=== PATIENT | female | born 1985 | race African-American/Black ===

== ENCOUNTER 2016-10-26 18:25 | Emergency (ER) | payer BC | END 2016-10-26 20:05 | disposition left against medical advice (07) | LOC: UCEAST 18:25 | DX: R50.9 Fever, unspecified (principal); Z53.21 Procedure and treatment not carried out due to patient leaving prior to being seen by health care provider ==

== ENCOUNTER 2017-06-21 17:49 | Emergency (ER) | payer BC ==
[2017-06-21 17:56] VITALS: BP 164/109
[2017-06-21] MEDS ORDERED: Benzoin Compound STICK TOPICAL ONE (18:31)
[2017-06-21] MEDS ORDERED: Tetan/Diph/Pertus SYR(Tdap)* 0.5 ML SYR(BOOSTRIX) use SYR IM ONE (18:32)
[2017-06-21] MEDS ORDERED: DOXYcycline CAP(*) 100 MG PO ONE (18:32)
--- NOTE | 2017-06-21 19:09 | UC ---
Skin Complaint HPI - HPI Summary HPI Summary: steped on a latch from a dog kennel about 5 pm----has a laceration to right heel - History of Current Complaint Chief Complaint: UCLaceration Time Seen by Provider: 06/21/17 18:16 Stated Complaint: HEEL COMPLAINT Hx Obtained From: Patient Hx Last Menstrual Period: years ago ?: No Onset/Duration: Sudden Onset, Lasting Hours - 2, Still Present Timing: Constant Onset Severity: Moderate Current Severity: Moderate Pain Intensity: 6 Pain Scale Used: 0-10 Numeric Location: Discrete - right heel Aggravating Factor(s): Touch Alleviating Factor(s): Nothing Related History: Trauma - Allergy/Home Medications Allergies/Adverse Reactions: Allergies Allergy/AdvReac Type Severity Reaction Status Date / Time Iodinated Contrast Media Allergy Rash Verified 06/21/17 17:57 [IV CONTRAST DYE] CATS Allergy SNEEZING, Uncoded 06/21/17 17:57 ITCHY EYES KIWI Allergy THROAT Uncoded 06/21/17 17:57 ITCHY Home Medications: Home Medications Irbesartan (NF) [Avapro (NF)] 1 tab PO DAILY 06/21/17 [History Confirmed ] Review of Systems Constitutional: Negative Skin: Other - 5mm x25 mm skin flap back of right heel Eyes: Negative ENT: Negative Respiratory: Cough Cardiovascular: Negative Gastrointestinal: Negative Genitourinary: Negative Motor: Negative Neurovascular: Negative Musculoskeletal: Negative Neurological: Negative Psychological: Negative Is Patient Immunocompromised?: No All Other Systems Reviewed And Are Negative: Yes PMH/Surg Hx/FS Hx/Imm Hx Previously Healthy: No Cardiovascular History: Hypertension GI/ History: Gastroesophageal Reflux - Surgical History Surgical History: Yes Surgery Procedure, Year, and Place: 2001 AND 2007 x2, [facility] - Family History Known Family History: Positive: None - Social History Occupation: Employed Full-time Lives: With Family Alcohol Use: Occasionally Substance Use Type: None Smoking Status (MU): Current Some Day Smoker - Immunization History Most Recent Influenza Vaccination: "a long time ago" Most Recent Tetanus Shot: unknown Most Recent Pneumonia Vaccination: never Physical Exam Triage Information Reviewed: Yes Appearance: Well-Appearing, No Pain Distress, Obese Vital Signs: Initial Vital Signs Temp 98.6 F 06/21/17 17:53 Pulse 91 06/21/17 17:53 Resp 18 06/21/17 17:53 BP 164/109 11/12/17 17:53 Pulse Ox 97 06/21/17 17:53 Vital Signs Reviewed: Yes Eye Exam: Normal Eyes: Positive: Conjunctiva Clear ENT Exam: Normal ENT: Positive: Normal ENT inspection, Hearing grossly normal, Pharynx normal. Negative: Nasal congestion, Nasal drainage, Trismus, Muffled voice, Hoarse voice Dental Exam: Normal Neck exam: Normal Neck: Positive: Supple, Nontender Respiratory Exam: Normal Respiratory: Positive: Chest non-tender, No respiratory distress, No accessory muscle use Cardiovascular Exam: Normal Cardiovascular: Positive: RRR, Pulses Normal, Brisk Capillary Refill Musculoskeletal Exam: Normal Musculoskeletal: Positive: Strength Intact, ROM Intact, No Edema Neurological Exam: Normal Neurological: Positive: Alert, Muscle Tone Normal Psychological Exam: Normal Skin Exam: Other - skin avulsion as described Skin: Positive: Other Re-Evaluation - Re-Evaluation First Eval Change: Improved - warm soap and water soak, and wound cleanse skin approximated vaseline gauze and dsd applied with joslyn wrap---pt tolerated well Course/Dx - Course Course Of Treatment: vaseline gauze with bulky dressing bid after warm soaks, up date tetanus, doxycycline follow bp with pcp - Diagnoses Provider Diagnoses: skin avulsion right foot, hypertension in poor control, Discharge - Discharge Plan Condition: Stable Disposition: HOME Patient Education Materials: Hypertension (ED), Skin Avulsion (ED) Forms: *Work Release Referrals: Austin Chapman MD [Primary Care Provider] - 1 Week
== END 2017-06-21 19:45 | disposition home or self-care (01) ==
LOC: UCEAST 17:49
DX: S91.311A Laceration without foreign body, right foot, initial encounter (principal); W22.8XXA Striking against or struck by other objects, initial encounter; Y93.9 Activity, unspecified; Y92.9 Unspecified place or not applicable; Z23 Encounter for immunization; I10 Essential (primary) hypertension; K21.9 Gastro-esophageal reflux disease without esophagitis; E66.9 Obesity, unspecified; Z72.0 Tobacco use
CPT/HCPCS: 90715; 99212; A9270-GY; G0463

== ENCOUNTER 2017-09-15 08:41 | Emergency (ER) | payer BC ==
[2017-09-15 09:03] VITALS: BP 174/95
[2017-09-15] MEDS ORDERED: Albuterol 2.5 MG/3 ML NEB.SOL* (0.083%) INH ONE (09:35)
[2017-09-15] MEDS ORDERED: Ondansetron ODT TAB* 4 MG PO ONE (09:35)
--- NOTE | 2017-09-15 09:43 | UC ---
FLU HPI - HPI Summary HPI Summary: SEVERAL DAYS OF FEVER, CHILLS, MALAISE. HAS NAUSEA, VOMITING AND COUGH. FEELS CONGESTED IN THE UPPER CHEST. UNABLE TO KEEP DOWN PO TODAY AT ALL. NO FLU SHOT THIS SEASON. - History of Current Complaint Chief Complaint: UCGeneralIllness Stated Complaint: FEVER, VOMITING, CHILLS Time Seen by Provider: 09/15/17 08:49 Hx Obtained From: Patient Hx Last Menstrual Period: no period - states Mirena Onset/Duration: Gradual Onset, Lasting Days, Still Present Severity Currently: Moderate Severity Initially: Moderate Pain Intensity: 3 Pain Scale Used: 0-10 Numeric Associated Signs & Symptoms: Positive: Fever, Myalgia, Cough, Nasal Congestion, Vomiting - Allergy/Home Medications Allergies/Adverse Reactions: Allergies Allergy/AdvReac Type Severity Reaction Status Date / Time Iodinated Contrast- Oral and Allergy Rash Verified 09/15/17 08:51 IV Dye CATS Allergy SNEEZING, Uncoded 06/21/17 17:57 ITCHY EYES KIWI Allergy THROAT Uncoded 06/21/17 17:57 ITCHY PMH/Surg Hx/FS Hx/Imm Hx Cardiovascular History: Hypertension Respiratory History: Asthma - Surgical History Surgical History: Yes Surgery Procedure, Year, and Place: 2001 AND 2007 x2, [facility]. 2014 - gastric sleeve. 2017 - cornea transplant [facility] - Family History Known Family History: Positive: Hypertension - Social History Alcohol Use: None Substance Use Type: None Smoking Status (MU): Former Smoker - Immunization History Most Recent Influenza Vaccination: "a long time ago" Most Recent Tetanus Shot: unknown Most Recent Pneumonia Vaccination: never Review of Systems Constitutional: Fever, Chills, Fatigue ENT: Sore Throat, Nasal Discharge Respiratory: Cough Gastrointestinal: Abdominal Pain, Vomiting, Nausea Musculoskeletal: Myalgia All Other Systems Reviewed And Are Negative: Yes Physical Exam Triage Information Reviewed: Yes Appearance: No Pain Distress, Well-Nourished, Ill-Appearing - MILD Vital Signs: Initial Vital Signs Temp 101.3 F 09/15/17 08:53 Pulse 101 09/15/17 08:53 Resp 22 09/15/17 08:53 BP 174/95 09/15/17 08:53 Pulse Ox 98 09/15/17 08:53 Vital Signs Reviewed: Yes Eyes: Positive: Conjunctiva Clear ENT: Positive: Hearing grossly normal, Pharynx normal, TMs normal Neck: Positive: Supple, Nontender, No Lymphadenopathy Respiratory Exam: Normal Cardiovascular: Positive: Tachycardia Abdomen Description: Positive: Soft Musculoskeletal: Positive: No Edema Neurological: Positive: Alert Psychological: Positive: Age Appropriate Behavior Skin: Negative: rashes Diagnostics - Laboratory Diagnostic Studies Completed/Ordered: FLU SWAB NEGATIVE - Radiology CHEST XRAY Xray Interpretation: No Acute Changes Radiology Interpretation Completed By: Radiologist Flu Course/Dx - Differential Dx/Diagnosis Provider Diagnoses: ACUTE VIRAL SYNDROME Discharge - Discharge Plan Condition: Stable Disposition: HOME Prescriptions: Albuterol HFA INHALER* [Ventolin HFA Inhaler*] 2 puff INH Q4H PRN #1 mdi PRN Reason: Shortness Of Breath Ondansetron ODT TAB* [Zofran Odt TAB*] 4 mg PO Q6H PRN #20 tab.odt PRN Reason: Nausea/Vomiting predniSONE TAB* [Deltasone TAB*] 40 mg PO DAILY #10 tab Patient Education Materials: Viral Syndrome (ED) Forms: *Work Release Referrals: Austin Chapman MD [Primary Care Provider] - 2 Weeks Additional Instructions: FLU SWAB NEGATIVE. CHEST XRAY UNREMARKABLE. YOU FELT A BIT BETTER AFTER THE NEB TREATMENT. WILL TREAT YOUR SYMPTOMS WITH ALBUTEROL INHALER, PREDNISONE AND NAUSEA MEDICINE. VIRAL SYNDROME: The physician has diagnosed a viral infection. Viruses not only cause "colds," but can cause many different symptoms including generalized aching, fever, headache, cough, diarrhea, nausea, vomiting, and fatigue. The treatment, for the most part, is simply relief of symptoms. This means that antibiotics are usually not given. Rest, fluids, pain medications and, occasionally, medication for the specific symptoms that are most bothersome will be prescribed. Go to the ED if you develop any new or unusual symptoms such as severe headache, stiff neck, high fever, chest pain, productive cough, or shortness of breath. You should be rechecked if you don't see marked improvement within 10 to 14 days.
--- NOTE | 2017-09-15 10:09 | RAD ---
INDICATION: Cough and fever COMPARISON: Most recent comparison chest x-rays dated February 27, 2016 TECHNIQUE: PA and lateral views of the chest were obtained. FINDINGS: The heart and mediastinum are normal in size and contour. The lungs are grossly clear. There is no evidence of large pleural effusion. Visualized bones are normal for the patient's age. There is no radiographic evidence of free air beneath the diaphragm IMPRESSION: No radiographic evidence of acute cardiopulmonary disease.
== END 2017-09-15 10:55 | disposition home or self-care (01) ==
LOC: UCEAST 08:41
DX: B34.9 Viral infection, unspecified (principal); R00.0 Tachycardia, unspecified; I10 Essential (primary) hypertension; J45.909 Unspecified asthma, uncomplicated; Z98.84 Bariatric surgery status; Z94.7 Corneal transplant status; Z91.041 Radiographic dye allergy status; Z87.891 Personal history of nicotine dependence
CPT/HCPCS: 71046; 87502; 99212; A9270-GY; G0463

== ENCOUNTER 2021-09-23 18:34 | Observation (INO) ==
[2021-09-23 20:26] LABS: Urine Appearance Cloudy; Urine Bilirubin Negative (Negative); Urine Blood Negative (Negative); Urine Color Yellow; Urine Glucose Negative (Negative); Urine Ketones Trace (Negative); Urine Nitrite Negative (Negative); Urine Protein 1+(30 mg/dL) (Negative); Urine Specific Gravity 1.028 (1.002-1.030); Urine Urobilinogen Negative (Negative)
[2021-09-23 21:09] LABS: Urine Bacteria Absent (Absent); Urine Red Blood Cell Absent (Absent); Urine Squamous Epithelial Cell Present (Absent); Urine White Blood Cell Absent (Absent)
[2021-09-23 22:32] LABS: ABS Eosinophils 0.2 10^3/ul (0-0.6); ABS Monocytes 0.4 10^3/ul (0-0.8); ABS Neutrophils 3.6 10^3/ul (1.5-7.7); Eosinophil % 3.1 %; Hematocrit 38 % (35-47); Hemoglobin 12.7 g/dL (12.0-16.0); Lymphocyte % 32.4 %; Mean Corpuscular HGB Conc 34 g/dL (31-36); Mean Corpuscular Hemoglobin 30 pg (27-31); Mean Corpuscular Volume 88 fL (80-97); Mean Platelet Volume 7.3 fL (7.4-10.4); Nucleated Red Blood Cells % 0.2; Platelet Count 219 10^3/uL (150-450); Red Blood Count 4.25 10^6 /uL (3.70-4.87); Red Cell Distribution Width 13 % (10-15); White Blood Count 6.1 10^3/uL (3.5-10.8)
[2021-09-23 22:49] LABS: ALT 16 U/L (7-52); AST 11 U/L (13-39); Albumin 4.1 g/dL (3.2-5.2); Albumin/Globulin Ratio 1.6 (1-3); Alkaline Phosphatase 95 U/L (35-149); Anion Gap 7 mmol/L (2-11); Blood Urea Nitrogen 16 mg/dL (6-24); C Reactive Protein 2.69 mg/L (<8.01); CO2 Carbon Dioxide 26 mmol/L (22-32); Calcium 9.1 mg/dL (8.6-10.3); Chloride 105 mmol/L (101-111); Globulin 2.6 g/dL (2-4); Glucose 87 mg/dL (70-100); Lipase 63 U/L (11.0-82.0); Potassium 3.8 mmol/L (3.5-5.0); Sodium 138 mmol/L (135-145); Total Protein 6.7 g/dL (6.4-8.9); eGFR CKD-EPI 79.1 (>60)
[2021-09-23 22:55] LABS: HCG Pregnancy < 0.60 mIU/mL
[2021-09-24] MEDS ORDERED: Ondansetron 4 mg VIAL 2 MG/ML 2 ml VIAL IV PRN (00:34)
[2021-09-24] MEDS: Lactated Ringers 1000 ml BAG 1,000 ML IV SCH ×4 (01:26→13:25)
[2021-09-24] MEDS: Acetaminophen IV 1 GM/100ML 100 ML IV PRN ×3 (04:24→17:57)
[2021-09-24 05:57] LABS: ABS Basophils 0.1 10^3/ul (0-0.2); ABS Eosinophils 0.2 10^3/ul (0-0.6); ABS Lymphocytes 1.8 10^3/ul (1.0-4.8); ABS Monocytes 0.5 10^3/ul (0-0.8); ABS Neutrophils 3.4 10^3/ul (1.5-7.7); Eosinophil % 3.9 %; Hematocrit 37 % (35-47); Hemoglobin 12.5 g/dL (12.0-16.0); Lymphocyte % 29.7 %; Mean Corpuscular HGB Conc 34 g/dL (31-36); Mean Corpuscular Hemoglobin 30 pg (27-31); Mean Corpuscular Volume 88 fL (80-97); Mean Platelet Volume 7.1 fL (7.4-10.4); Nucleated Red Blood Cells % 0.1; Platelet Count 207 10^3/uL (150-450); Red Blood Count 4.15 10^6 /uL (3.70-4.87); Red Cell Distribution Width 13 % (10-15); White Blood Count 5.9 10^3/uL (3.5-10.8)
[2021-09-24 06:15] LABS: Albumin 3.9 g/dL (3.2-5.2); Albumin/Globulin Ratio 1.7 (1-3); C Reactive Protein 2.49 mg/L (<8.01); Calcium 9.1 mg/dL (8.6-10.3); Globulin 2.3 g/dL (2-4); Potassium 3.9 mmol/L (3.5-5.0); Total Bilirubin 0.8 mg/dL (0.2-1.0); Total Protein 6.2 g/dL (6.4-8.9); eGFR CKD-EPI 74.4 (>60)
[2021-09-24 07:47] LABS: Erythrocyte Sed Rate 5 mm/Hr (0-19)
[2021-09-25] MEDS: Lactated Ringers 1000 ml BAG 1,000 ML IV SCH ×2 (03:25→14:06)
[2021-09-25] MEDS: Acetaminophen IV 1 GM/100ML 100 ML IV PRN (07:37)
[2021-09-25] MEDS ORDERED: ceFAZolin 1 GM ADVAN 1 GM ADDV.VIAL IVPB ONE (17:24)
[2021-09-25] MEDS ORDERED: Bupivacaine 0.25% EPI 200,000 30 ML SDV ONE (17:59)
[2021-09-25] MEDS ORDERED: Midazolam 2 mg/2 ml VIAL 1 mg/ml 2 ml VIAL (2 mg) ONE (18:11)
[2021-09-25] MEDS ORDERED: fentaNYL 100 mcg/2 ml 50 MCG/ML VIAL ONE (18:11)
[2021-09-25] MEDS ORDERED: Succinylcholine 200 mg VIAL 20 mg/ml 10 ml VIAL (200 mg) ONE (18:11)
[2021-09-25] MEDS ORDERED: Rocuronium 50 mg VIAL 10 mg/ml 5 ml VIAL (50 mg) ONE (18:19)
[2021-09-25] MEDS ORDERED: Sodium Citrate/Citric Acid LIQ 15 ML UDC ONE (18:20)
[2021-09-25] MEDS ORDERED: Metoclopramide 5 MG/ML VIAL (10 mg) IV PRN (18:21)
[2021-09-25] MEDS ORDERED: HYDROmorphone 1 MG/1 ML SYRINGE IV PRN (18:21)
[2021-09-25] MEDS ORDERED: Sodium Citrate/Citric Acid LIQ 15 ML UDC PO ONE (18:21)
[2021-09-25] MEDS ORDERED: Ondansetron 4 mg VIAL 2 MG/ML 2 ml VIAL IV PRN (18:21)
[2021-09-25] MEDS ORDERED: Buffered Lidocaine 1% SYRIN 1 ml INTRADERM ONE (18:21)
[2021-09-25] MEDS ORDERED: fentaNYL 100 mcg/2 ml 50 MCG/ML VIAL IV PRN (18:21)
[2021-09-25] MEDS ORDERED: Naloxone 0.4 mg VIAL 0.4 mg/ml 1 ml VIAL IV PRN (18:21)
[2021-09-25] MEDS ORDERED: Dexamethasone IV 4 MG/ML VIAL 1 ml VIAL ONE (18:52)
[2021-09-25] MEDS ORDERED: Lactated Ringers 1000 ml BAG 1,000 ML IV SCH (19:00)
[2021-09-25] MEDS ORDERED: Ondansetron 4 mg VIAL 2 MG/ML 2 ml VIAL ONE (20:26)
[2021-09-25] MEDS ORDERED: Labetalol IV 5 MG/ML 20 ml VIAL ONE (20:34)
[2021-09-25] MEDS ORDERED: Labetalol IV 5 MG/ML 20 ml VIAL IV PUSH ONE ×2 (22:00→22:15)
[2021-09-26] MEDS: oxyCODONE/Acetamin 5/325 mg TAB PO PRN ×2 (08:40→12:27)
[2021-09-26 11:22] VITALS: BP 140/79
== END 2021-09-26 14:15 | disposition home or self-care (01) ==
LOC: EDHOLD 18:34 → ED 18:34 → SUATTDRO 09-24 00:28 → EDHOLD 09-24 03:14 → SSU 09-24 03:55
PROVIDERS: ADMIT Internal Medicine; ATTEND Surgery

== ENCOUNTER 2023-07-17 12:18 | Observation (INO) ==
[2023-07-17 13:08] LABS: ABS Basophils 0.1 10^3/uL (0.0-0.1); ABS Eosinophils 0.1 10^3/uL (0.0-0.5); ABS Lymphocytes 1.7 10^3/uL (1.0-4.8); ABS Monocytes 0.5 10^3/uL (0.0-0.9); ABS Neutrophils 4.2 10^3/uL (1.5-7.6); ABS Nucleated RBC 0.02 10^3/ul; Eosinophil % 1.7 %; Hematocrit 40.1 % (35-45); Hemoglobin 13.8 g/dL (11.5-14.3); Lymphocyte % 26.3 %; Mean Corpuscular Hemoglobin 30.4 pg (27-33); Mean Corpuscular Hgb Conc 34.5 g/dL (31-36); Mean Platelet Volume 7.6 fL (7.5-11.2); Nucleated Red Blood Cells % 0.3 %/100WBC (0.0-0.8); Platelet Count 238 10^3/uL (150-450); Red Blood Count 4.55 10^6/uL (3.63-4.92); Red Cell Distribution Width 12.9 % (12-17); White Blood Count 6.6 10^3/uL (3.8-11.8)
[2023-07-17 13:15] LABS: Activated Partial Thrombo Time 31.2 seconds (26.0-38.0); INR 0.98 (0.83-1.13)
[2023-07-17 13:28] LABS: ALT 21 U/L (7-52); AST 15 U/L (13-39); Albumin 4.1 g/dL (3.2-5.2); Albumin/Globulin Ratio 1.6 (1-3); Alkaline Phosphatase 100 U/L (35-149); Anion Gap 6 mmol/L (2-16); Blood Urea Nitrogen 14 mg/dL (6-24); CO2 Carbon Dioxide 29 mmol/L (22-32); Calcium 9.2 mg/dL (8.6-10.3); Chloride 101 mmol/L (101-111); Cholesterol 203 mg/dL; Creatinine, Serum 0.98 mg/dL (0.51-0.95); Globulin 2.6 g/dL (2-4); Glucose 90 mg/dL (70-100); HDL Cholesterol 50.3 mg/dL; Indirect Bilirubin 0.5 mg/dL (0.3-1.0); LDL Cholesterol 130 mg/dL; Potassium 3.9 mmol/L (3.5-5.0); Sodium 136 mmol/L (135-145); Total Bilirubin 0.5 mg/dL (0.2-1.0); Total Protein 6.7 g/dL (6.4-8.9); Triglycerides 115 mg/dL; eGFR CKD-EPI 75.3 (>60)
[2023-07-17 13:30] LABS: HCG Pregnancy < 0.60 mIU/mL
[2023-07-17] MEDS ORDERED: Iohexol 350 (CONTRAST) 500 ML MDV IV ONE (14:03)
[2023-07-17 16:44] LABS: Urine Appearance Clear; Urine Bilirubin Negative (Negative); Urine Blood Negative (Negative); Urine Color Yellow; Urine Glucose Negative (Negative); Urine Ketones Negative (Negative); Urine Nitrite Negative (Negative); Urine Protein Negative (Negative); Urine Specific Gravity 1.019 (1.002-1.030); Urine Urobilinogen Negative (Negative)
[2023-07-17] MEDS ORDERED: hydrALAZINE 20 mg/ml 1 ML Vial IV IV SLOW PU PRN (17:04)
[2023-07-17 18:24] LABS: Magnesium 1.7 mg/dL (1.9-2.7)
[2023-07-17 18:53] LABS: Calcium 9.1 mg/dL (8.6-10.3); Creatinine, Serum 1.11 mg/dL (0.51-0.95); Potassium 3.2 mmol/L (3.5-5.0); eGFR CKD-EPI 64.8 (>60)
[2023-07-17] MEDS: DULoxetine DR 60 mg CAP PO SCH (21:59)
[2023-07-18] MEDS ORDERED: Potassium Chlor 20 meq TAB.ER PO ONE (01:06)
[2023-07-18] MEDS ORDERED: Magnesium Sulfate IV 1GM/100ML 1 GM/100 ML BAG IV ONE ×2 (01:07→09:32)
[2023-07-18] MEDS ORDERED: KCL 20 MEQ/100 ML IVPREMIX 20 MEQ/100 ML BAG IV SCH (02:00)
[2023-07-18] MEDS: DULoxetine DR 60 mg CAP PO SCH (08:55)
[2023-07-18] MEDS ORDERED: Aspirin EC 81 mg TAB.EC (enteric coated) PO SCH (09:00)
[2023-07-18] MEDS ORDERED: Pantoprazole VIAL 40 MG VIAL IV ONE (09:33)
[2023-07-18] MEDS ORDERED: Acetaminophen IV 1 GM/100ML 1,000 MG/100 ML BAG IV SCH (09:45)
[2023-07-18 11:16] VITALS: BP 133/86
[2023-07-18 11:39] LABS: ABS Basophils 0.1 10^3/uL (0.0-0.1); ABS Eosinophils 0.1 10^3/uL (0.0-0.5); ABS Lymphocytes 1.5 10^3/uL (1.0-4.8); ABS Monocytes 0.5 10^3/uL (0.0-0.9); ABS Neutrophils 4.6 10^3/uL (1.5-7.6); ABS Nucleated RBC 0.01 10^3/ul; Eosinophil % 1.9 %; Hematocrit 38.1 % (35-45); Lymphocyte % 21.7 %; Mean Corpuscular Hemoglobin 30.1 pg (27-33); Mean Corpuscular Hgb Conc 34.1 g/dL (31-36); Mean Corpuscular Volume 88.1 fL (80-97); Mean Platelet Volume 7.3 fL (7.5-11.2); Nucleated Red Blood Cells % 0.1 %/100WBC (0.0-0.8); Platelet Count 221 10^3/uL (150-450); Red Blood Count 4.32 10^6/uL (3.63-4.92); Red Cell Distribution Width 12.9 % (12-17); White Blood Count 6.7 10^3/uL (3.8-11.8)
[2023-07-18 11:51] LABS: Calcium 8.6 mg/dL (8.6-10.3); Creatinine, Serum 1.08 mg/dL (0.51-0.95); Potassium 3.9 mmol/L (3.5-5.0)
[2023-07-18 15:24] LABS: Urine Benzodiazepine Screen None Detected (None Detect); Urine Cannabinoids Screen None Detected (None Detect); Urine Opiates Screen None Detected (None Detect)
[2023-07-18 15:43] LABS: Urine Buprenorphine Screen None Detected (None Detect); Urine Fentanyl Screen None Detected (None Detect)
[2023-07-19] MEDS ORDERED: Polyethylene Glycol 3350 17 GM PACKET PO SCH (09:00)
== END 2023-07-18 15:00 | disposition home or self-care (01) ==
LOC: ED 12:18 → EDHOLD 12:18 → MEDTELE 16:22
PROVIDERS: ADMIT Internal Medicine; ATTEND Internal Medicine